=== PATIENT | male | born 1975 | race Two or more races ===

== ENCOUNTER 2018-02-25 12:46 | Observation (INO) | payer BC, OTHER ==
[~2018-02-25] VITALS: Ht 165.1 cm; Wt 67.0 kg
[~2018-02-25 12:46] MED LIST: NONE PER PT
--- NOTE | 2018-02-25 14:24 | NUR ---
Pt presents to ED for palpitatioons and EKG changes. Pt states he has episodes lating <1min of near syncopy and palpitations. Pt states saw PCP today and had changes on EKS so was sent here to ED. Pt states no CP at this time. No CP. SR at 75 on monitor.
--- NOTE | 2018-02-25 14:58 | NUR ---
SBAR report received from RNFidencio. Pt resting on [facility], on all monitors.
--- NOTE | 2018-02-25 15:03 | NUR ---
Dr. Washburn at bedside to evaluate pt.
[2018-02-25] MEDS ORDERED: SODIUM CHLORIDE FLUSH 10ML SYR IVF ONE (15:30)
[2018-02-25 15:37] LABS: BASOPHILS # (AUTO) 0.02 x10^3/uL (0-0.1); BASOPHILS % (AUTO) 0 % (0-1); EOSINOPHILS # (AUTO) 0.17 x10^3/uL (0-0.4); EOSINOPHILS % (AUTO) 2 % (1-7); LYMPHOCYTES # (AUTO) 2.18 x10^3/uL (1-3.4); LYMPHOCYTES % (AUTO) 31 % (22-44); MD NO; MEAN CORPUSCULAR HEMOGLOBIN 27.7 pg (27.5-34.5); MEAN CORPUSCULAR HGB CONC 32.6 g/dL (33.2-36.2); MEAN PLATELET VOLUME 7.1 fL (7.4-10.4); MONOCYTES % (AUTO) 8 % (2-9); NEUTROPHILS # (AUTO) 4.15 x10^3/uL (1.8-6.8); NEUTROPHILS % (AUTO) 58 % (42-75); PLATELET COUNT 301 x10^3/uL (130-400); RED BLOOD COUNT 5.76 x10^6/uL (4.38-5.82)
[2018-02-25 15:50] LABS: ALANINE AMINOTRANSFERASE 72 U/L (12-78); ALBUMIN 3.8 g/dL (3.4-5.0); ANION GAP 7 mmol/L (5-15); CALCIUM 8.6 mg/dL (8.5-10.1); CHLORIDE 102 mmol/L (98-107); CREATININE 0.84 mg/dL (0.7-1.3)
--- NOTE | 2018-02-25 15:53 | NUR ---
US at bedside.
[2018-02-25 15:54] LABS: ALKALINE PHOSPHATASE 54 U/L (45-117); BILIRUBIN,TOTAL 0.5 mg/dL (0.2-1.0); TOTAL PROTEIN 7.5 g/dL (6.4-8.2); TROPONIN I < 0.015 ng/mL (0.000-0.045)
--- NOTE | 2018-02-25 16:28 | NUR ---
Pt resting on [facility], ECHO complete. VSS.
--- NOTE | 2018-02-25 16:58 | NUR ---
XR at bedside to retake CXR.
--- NOTE | 2018-02-25 17:32 | NUR ---
Pt ambulated to bathroom, no assistance required.
[2018-02-25] MEDS ORDERED: SODIUM CHLORIDE FLUSH 10ML SYR IVF PRN (19:30)
--- NOTE | 2018-02-25 19:51 | NUR ---
DEANNA LINE MECHANIC AT BEDSIDE EVALUATING PT FOR ADMIT
[2018-02-25] MEDS ORDERED: POLYETHYLENE GLYCOL 17 GM PACKET PO PRN (20:30)
[2018-02-25] MEDS ORDERED: ACETAMINOPHEN 325 MG TABLET PO PRN (20:30)
[2018-02-25] MEDS ORDERED: ONDANSETRON ODT 4 MG PO PRN (20:30)
[2018-02-25] MEDS ORDERED: BISACODYL 10 MG SUPP PR PRN (20:30)
--- NOTE | 2018-02-25 20:38 | NUR ---
report given to jaspal guido
[2018-02-25 21:01] VITALS: BP_SYST 148; BP_SYST 154; BP_DIAS 107; BP_DIAS 99
[2018-02-25] MEDS: SODIUM CHLORIDE FLUSH 10ML SYR IVF SCH (21:27)
[2018-02-25] MEDS: HEPARIN 5,000 UNITS/ML, 1ML SQ SCH (21:27)
[2018-02-25 21:30] VITALS: BP 167/117
[2018-02-25] MEDS ORDERED: hydrALAzine 20 MG/ML, 1ML ONE (21:38)
[2018-02-25 21:47] VITALS: BP 154/107
[2018-02-25] MEDS ORDERED: hydrALAzine 20 MG/ML, 1ML IV PRN (22:00)
[2018-02-25 22:15] VITALS: BP 150/93
[2018-02-25 23:58] LABS: TROPONIN I < 0.015 ng/mL (0.000-0.045)
[2018-02-26 02:25] VITALS: BP 135/86
[2018-02-26 02:26] VITALS: BP 127/88
[2018-02-26 02:27] VITALS: BP 120/77
[2018-02-26 03:35] LABS: BASOPHILS # (AUTO) 0.03 x10^3/uL (0-0.1); BASOPHILS % (AUTO) 0 % (0-1); EOSINOPHILS # (AUTO) 0.18 x10^3/uL (0-0.4); EOSINOPHILS % (AUTO) 2 % (1-7); LYMPHOCYTES # (AUTO) 2.84 x10^3/uL (1-3.4); LYMPHOCYTES % (AUTO) 35 % (22-44); MD NO; MEAN CORPUSCULAR HGB CONC 33.3 g/dL (33.2-36.2); MEAN CORPUSCULAR VOLUME 84.2 fL (81-97); MONOCYTES # (AUTO) 0.85 x10^3/uL (0.2-0.8); MONOCYTES % (AUTO) 10 % (2-9); NEUTROPHILS # (AUTO) 4.29 x10^3/uL (1.8-6.8); NEUTROPHILS % (AUTO) 52 % (42-75); PLATELET COUNT 267 x10^3/uL (130-400); RED BLOOD COUNT 5.61 x10^6/uL (4.38-5.82); RED CELL DISTRIBUTION WIDTH 12.7 % (9.4-14.8)
[2018-02-26 03:46] LABS: ALBUMIN 3.4 g/dL (3.4-5.0); CALCIUM 8.1 mg/dL (8.5-10.1); CHLORIDE 103 mmol/L (98-107)
[2018-02-26 03:54] LABS: ALANINE AMINOTRANSFERASE 58 U/L (12-78); ALKALINE PHOSPHATASE 47 U/L (45-117); ANION GAP 8 mmol/L (5-15); BILIRUBIN,TOTAL 0.8 mg/dL (0.2-1.0); CHOL/HDL RATIO 4.8; CHOLESTEROL, TOTAL 181 mg/dL (140-239); CREATININE 0.84 mg/dL (0.7-1.3); HDL CHOL % 21 % (26-37); HDL CHOLESTEROL (DIRECT) 38 mg/dL (40-60); LDL CHOLESTEROL,CALCULATED 122 mg/dL (54-169); LDL/HDL RATIO 3.2 (0.5-3.0); TOTAL PROTEIN 6.7 g/dL (6.4-8.2); TRIGLYCERIDES 107 mg/dL (50-200); TROPONIN I < 0.015 ng/mL (0.000-0.045); VLDL CHOLESTEROL 21 mg/dL (0-25)
[2018-02-26] MEDS: HEPARIN 5,000 UNITS/ML, 1ML SQ SCH ×2 (04:50→13:25)
[2018-02-26 06:41] VITALS: BP_SYST 116; BP_SYST 121; BP_SYST 124; BP_DIAS 80; BP_DIAS 87
[2018-02-26] MEDS ORDERED: SENNA/DOCUSATE TABLET PO SCH (09:00)
[2018-02-26] MEDS: SODIUM CHLORIDE FLUSH 10ML SYR IVF SCH (09:58)
[2018-02-26 15:25] VITALS: BP 128/85
== END 2018-02-26 16:20 | disposition home or self-care (01) ==
LOC: ED 16:36 → EDIP 19:48 → INTOOBSV 19:48 → 5SO 20:50 → DCLOUNGE 02-26 16:13
PROVIDERS: ADMIT Hospitalist; ATTEND Hospitalist
DX: R55 Syncope and collapse (principal); R42 Dizziness and giddiness; R00.2 Palpitations; I10 Essential (primary) hypertension; I07.1 Rheumatic tricuspid insufficiency; Z82.49 Family history of ischemic heart disease and other diseases of the circulatory system; Z83.3 Family history of diabetes mellitus; Z87.74 Personal history of (corrected) congenital malformations of heart and circulatory system; Z87.891 Personal history of nicotine dependence; Z95.2 Presence of prosthetic heart valve
CPT/HCPCS: 36415; 71045; 80053; 80061; 83605; 83735; 84443; 84484; 85025; 93005; 93306; 96372; 96374; 99285; G0378; J0360; J1644

== ENCOUNTER 2018-03-03 17:07 | Emergency (ER) | payer BC ==
[~2018-03-03] VITALS: Ht 165.1 cm; Wt 73.5 kg
--- NOTE | 2018-03-03 17:30 | NUR ---
FIRST CONTACT WITH PT. PT BIB P/V AFTER DR. ARAYA'S OFFICE REQUESTED PT GO DIRECTLY TO ER FOR RUNS OF V-TACH ON TELEMTRIC PATCH SYSTEM THAT PT HAD PLACED ON THURSDAY. PT REPORTED FEELING LIGHTEDHEADED AT ABOUT 12 NOON TODAY WITH SOB. PT'S SYMPTOMS LASTED FOR ABOUT A MINUTE THEN RESOLVED. PT DENIES ANY SYMPTOMS NOW. PT ON AND IV STARTED. EKG DONE.
[2018-03-03] MEDS ORDERED: METO25TA35 PO (17:51)
[2018-03-03 17:57] LABS: BASOPHILS # (AUTO) 0.02 x10^3/uL (0-0.1); BASOPHILS % (AUTO) 0 % (0-1); EOSINOPHILS # (AUTO) 0.18 x10^3/uL (0-0.4); EOSINOPHILS % (AUTO) 2 % (1-7); LYMPHOCYTES # (AUTO) 3.15 x10^3/uL (1-3.4); LYMPHOCYTES % (AUTO) 39 % (22-44); MD NO; MEAN CORPUSCULAR HEMOGLOBIN 27.8 pg (27.5-34.5); MEAN CORPUSCULAR HGB CONC 33.1 g/dL (33.2-36.2); MEAN CORPUSCULAR VOLUME 83.9 fL (81-97); MEAN PLATELET VOLUME 7.2 fL (7.4-10.4); MONOCYTES # (AUTO) 0.57 x10^3/uL (0.2-0.8); MONOCYTES % (AUTO) 7 % (2-9); NEUTROPHILS % (AUTO) 51 % (42-75); PLATELET COUNT 297 x10^3/uL (130-400); RED BLOOD COUNT 5.59 x10^6/uL (4.38-5.82); RED CELL DISTRIBUTION WIDTH 12.6 % (9.4-14.8)
[2018-03-03 17:59] LABS: ALANINE AMINOTRANSFERASE 96 U/L (12-78); ALBUMIN 4.4 g/dL (3.4-5.0); ANION GAP 6 mmol/L (5-15); CALCIUM 9.5 mg/dL (8.5-10.1); CHLORIDE 100 mmol/L (98-107)
[2018-03-03 18:04] LABS: ALKALINE PHOSPHATASE 55 U/L (45-117); BILIRUBIN,TOTAL 0.4 mg/dL (0.2-1.0); CREATININE 0.98 mg/dL (0.7-1.3); FREE T4 (FREE THYROXINE) 1.03 ng/dL (0.76-1.46); TOTAL PROTEIN 8.1 g/dL (6.4-8.2); TROPONIN I < 0.015 ng/mL (0.000-0.045)
--- NOTE | 2018-03-03 18:25 | NUR ---
REPORT TO COLLETTE JOHN. PT MOVED FROM TRAUMA 4 TO ROOM 3. PT DENIES ANY COMPLAINT AT THIS TIME.
--- NOTE | 2018-03-03 18:42 | NUR ---
RECEIVED REPORT. WAITING FOR DISPOSITION BY . NO ECTOPY ON MONITOR. CALLLIGHT IS WITHIN REACH.
--- NOTE | 2018-03-03 19:01 | NUR ---
REPORT TO RODRIGUEZ JOHN.
--- NOTE | 2018-03-03 19:20 | NUR ---
PT RESTING CALMLY ON GURNEY, PROVIDED PT WITH URINAL, DENIES FURTHER NEEDS AT THIS TIME, CALL LIGHT WITHIN REACH, MONITORS IN PLACE.
[2018-03-03 19:30] VITALS: BP 142/94
== END 2018-03-03 20:02 | disposition home or self-care (01) ==
LOC: ED 19:45
DX: I47.1 Supraventricular tachycardia (principal); Z87.891 Personal history of nicotine dependence; Z95.4 Presence of other heart-valve replacement
CPT/HCPCS: 36415; 71045; 80053; 84439; 84443; 84484; 85025; 93005; 99284

== ENCOUNTER 2018-03-05 12:18 | Inpatient (IN) | payer BC ==
[~2018-03-05] VITALS: Ht 165.1 cm; Wt 74.0 kg
[~2018-03-05 12:18] MED LIST changes: +METO25TA35 PO
[2018-03-05 13:17] VITALS: BP 151/105
[2018-03-05] MEDS ORDERED: METO25TA2 PO (13:21)
[2018-03-05] MEDS ORDERED: MIDAZOLAM 1 MG/ML, 5ML ONE ×2 (13:27→14:23)
[2018-03-05] MEDS ORDERED: CEFAZOLIN 1,000 MG ONE (13:27)
[2018-03-05] MEDS ORDERED: FENTANYL PF 100 MCG/2ML ONE ×2 (13:27→14:23)
[2018-03-05] MEDS ORDERED: LIDOCAINE 2%, 20ML ONE (13:27)
[2018-03-05] MEDS ORDERED: ONDANSETRON 2MG/ML, 2ML IV PRN ×2 (15:00→16:00)
[2018-03-05] MEDS ORDERED: HOLD MEDICATION MC PRN (15:00)
[2018-03-05] MEDS ORDERED: ACETAMINOPHEN 325 MG TABLET PO PRN (15:00)
[2018-03-05] MEDS ORDERED: ZOLPIDEM 5MG TABLET PO PRN (15:00)
[2018-03-05] MEDS ORDERED: HYDROcodone/APAP 5/325 TABLET PO PRN (15:00)
[2018-03-05] MEDS: SODIUM CHLORIDE 0.9% 1,000 ML IV SCH ×2 (15:17→21:20)
[2018-03-05 15:59] VITALS: BP 127/85
[2018-03-05] MEDS ORDERED: CEFAZOLIN PMX 1GM/50ML 50 ML IV PRN (16:00)
[2018-03-05 16:12] LABS: BASOPHILS % (AUTO) 0 % (0-1); EOSINOPHILS # (AUTO) 0.16 x10^3/uL (0-0.4); EOSINOPHILS % (AUTO) 2 % (1-7); LYMPHOCYTES # (AUTO) 2.07 x10^3/uL (1-3.4); LYMPHOCYTES % (AUTO) 30 % (22-44); MD NO; MEAN CORPUSCULAR HEMOGLOBIN 27.3 pg (27.5-34.5); MEAN CORPUSCULAR HGB CONC 32.6 g/dL (33.2-36.2); MEAN CORPUSCULAR VOLUME 83.8 fL (81-97); MONOCYTES # (AUTO) 0.48 x10^3/uL (0.2-0.8); MONOCYTES % (AUTO) 7 % (2-9); NEUTROPHILS # (AUTO) 4.21 x10^3/uL (1.8-6.8); NEUTROPHILS % (AUTO) 61 % (42-75); PLATELET COUNT 278 x10^3/uL (130-400); RED BLOOD COUNT 5.33 x10^6/uL (4.38-5.82); RED CELL DISTRIBUTION WIDTH 12.6 % (9.4-14.8)
[2018-03-05 16:23] LABS: INTERNATIONAL NORMALIZED RATIO 1.02 (0.93-1.1); PROTHROMBIN TIME 10.8 Seconds (9.6-11.5)
[2018-03-05 16:25] LABS: ALANINE AMINOTRANSFERASE 60 U/L (12-78); ALBUMIN 3.5 g/dL (3.4-5.0); ANION GAP 6 mmol/L (5-15); CALCIUM 8.1 mg/dL (8.5-10.1); CHLORIDE 105 mmol/L (98-107); CREATININE 0.72 mg/dL (0.7-1.3)
[2018-03-05 16:27] LABS: ALKALINE PHOSPHATASE 48 U/L (45-117); BILIRUBIN,TOTAL 0.5 mg/dL (0.2-1.0); TOTAL PROTEIN 6.8 g/dL (6.4-8.2)
[2018-03-05] MEDS: SOTALOL 80MG TABLET PO SCH (17:04)
[2018-03-05 20:30] VITALS: BP 146/95
[2018-03-05] MEDS: CEFAZOLIN PMX 1GM/50ML 50 ML IVPB SCH (21:11)
[2018-03-05] MEDS: SODIUM CHLORIDE FLUSH 10ML SYR IVF SCH (21:20)
[2018-03-05 21:25] VITALS: BP 134/83
[2018-03-05] MEDS: ACETAMINOPHEN 325 MG TABLET PO PRN (21:31)
[2018-03-06 01:32] VITALS: BP 107/68
[2018-03-06] MEDS: CEFAZOLIN PMX 1GM/50ML 50 ML IVPB SCH (04:23)
[2018-03-06] MEDS: SODIUM CHLORIDE 0.9% 1,000 ML IV SCH (05:01)
[2018-03-06] MEDS: SOTALOL 80MG TABLET PO SCH ×2 (05:41→18:07)
[2018-03-06 05:42] VITALS: BP 114/76
[2018-03-06] MEDS ORDERED: METOPROLOL SUCCINATE 25 MG TAB.ER.24H PO SCH (06:00)
[2018-03-06 07:35] VITALS: BP 110/72
[2018-03-06] MEDS: SODIUM CHLORIDE FLUSH 10ML SYR IVF SCH ×2 (10:09→20:17)
[2018-03-06 13:12] VITALS: BP 133/84
[2018-03-06] MEDS: ACETAMINOPHEN 325 MG TABLET PO PRN (18:09)
[2018-03-06 19:35] VITALS: BP 143/87
[2018-03-06 20:19] VITALS: BP 136/88
[2018-03-07 03:05] VITALS: BP 147/96
[2018-03-07 05:26] VITALS: BP 120/78
[2018-03-07] MEDS: SOTALOL 80MG TABLET PO SCH (05:29)
[2018-03-07 07:35] VITALS: BP 120/82
[2018-03-07] MEDS: ACETAMINOPHEN 325 MG TABLET PO PRN (08:39)
[2018-03-07] MEDS: SODIUM CHLORIDE FLUSH 10ML SYR IVF SCH (08:39)
[2018-03-07] MEDS ORDERED: SOTA80TA18 PO (10:25)
== END 2018-03-07 13:37 | disposition home or self-care (01) | DRG 227 ==
LOC: CACL 12:18 → ORIP 14:56 → INTOOBSV 14:56 → 5SO 15:24 → OBSVTOIN 03-06 13:50
PROVIDERS: ADMIT Internal Medicine Cardiovascular Disease; ATTEND Internal Medicine Cardiovascular Disease
PROC: 02H63KZ Insertion of Defibrillator Lead into Right Atrium, Percutaneous Approach (ICD-10-PCS; principal; 2018-03-05)
PROC: 02HK3KZ Insertion of Defibrillator Lead into Right Ventricle, Percutaneous Approach (ICD-10-PCS; 2018-03-05)
PROC: 0JH608Z Insertion of Defibrillator Generator into Chest Subcutaneous Tissue and Fascia, Open Approach (ICD-10-PCS; 2018-03-05)
DX: I47.2 Ventricular tachycardia (principal); I49.01 Ventricular fibrillation; Z87.891 Personal history of nicotine dependence
CPT/HCPCS: 33249; 36415; 71045; 71046; 80053; 85025; 85610; 85730; 93005; 93641; 99156; 99157; C1721; C1779; C1892; C1895; G0378; J0690; J2250; J3010; J3490